=== PATIENT | female | born 1990 | race Caucasian/White ===

== ENCOUNTER 2023-11-11 08:00 | Outpatient (CLI) | payer MEDICAID, OTHER ==
[~2023-11-11] VITALS: Ht 157.5 cm; Wt 105.9 kg
[2023-11-12] MEDS ORDERED: ceFAZolin SODIUM 2 GM in D5W 100 ML IV ONE (07:00)
== END 2023-11-11 16:30 | disposition home or self-care (01) ==
LOC: SLB 08:00 → EDSTATUS 11-12 07:30
PROVIDERS: ATTEND Surgery
DX: K42.9 Umbilical hernia without obstruction or gangrene (principal)
CPT/HCPCS: 87081; J7060